=== PATIENT | female | born 1990 | race Caucasian/White ===

== ENCOUNTER 2020-12-06 10:57 | Emergency (ER) | payer OTHER ==
--- NOTE | 2020-12-06 12:09 | CR ---
Chest: Portable view of the chest was obtained. Comparison: Prior chest x-ray of 12/04/20. Focal density is seen within the right peripheral chest. This is an interval change from prior exam. Other findings within the lungs show improvement from prior study. Heart size and mediastinum are within normal limits. Bony structures show nothing acute. Impression: 1. Slight improvement within the lungs from prior chest x-ray with new area of increased density within the peripheral right lung. Findings are compatible with changing COVID pneumonia. Diagnostic code #3
--- NOTE | 2020-12-06 12:44 | EDM.PDOC ---
ED HPI GENERAL MEDICAL PROBLEM - General Chief Complaint: Respiratory Problem Stated Complaint: COVID+ COUGH Time Seen by Provider: 12/06/20 11:22 Source of Information: Reports: Patient, RN Notes Reviewed History Limitations: Reports: No Limitations - History of Present Illness INITIAL COMMENTS - FREE TEXT/NARRATIVE: Patient is a 30-year-old female presenting to the emergency department with complaints of Covid symptoms. Reports she has been ill for the last 8 days. Last evening she was checking her oxygen at home and states that it was 87 to 89% on room air. She complains of cough, shortness of breath, fevers, nausea, vomiting and diarrhea. She was seen in the clinic 2 days ago and started on Zofran for nausea. She reports chest x-ray was done that time and she was told she had "severe pneumonia ". She denies any chronic medical conditions. - Related Data Allergies Allergy/AdvReac Type Severity Reaction Status Date / Time No Known Allergies Allergy Verified 12/06/20 11:24 Home Meds: Home Meds Azithromycin 250 mg PO ASDIRECTED 5 Days #6 tablet 12/06/20 [Rx] dexAMETHasone [Decadron] 6 mg PO DAILY 5 Days #5 tablet 12/06/20 [Rx] Past Medical History Respiratory History: Reports: Asthma - Infectious Disease History Infectious Disease History: Reports: Novel Coronavirus Social & Family History - Tobacco Use Tobacco Use Status *Q: Never Tobacco User Second Hand Smoke Exposure: No - Recreational Drug Use Recreational Drug Use: No ED ROS GENERAL - Review of Systems Review Of Systems: See Below Constitutional: Reports: Fever, Chills, Fatigue, Decreased Appetite HEENT: Reports: No Symptoms Respiratory: Reports: Shortness of Breath, Cough. Denies: Wheezing Cardiovascular: Reports: No Symptoms Endocrine: Reports: No Symptoms GI/Abdominal: Reports: Diarrhea, Nausea, Vomiting. Denies: Abdominal Pain : Reports: No Symptoms Musculoskeletal: Reports: No Symptoms Skin: Reports: No Symptoms Neurological: Reports: No Symptoms Psychiatric: Reports: No Symptoms Hematologic/Lymphatic: Reports: No Symptoms Immunologic: Reports: No Symptoms ED EXAM, GENERAL - Physical Exam Exam: See Below Exam Limited By: No Limitations General Appearance: Alert, WD/WN, No Apparent Distress Respiratory/Chest: No Respiratory Distress, Lungs Clear, Normal Breath Sounds, No Accessory Muscle Use, Chest Non-Tender Cardiovascular: Normal Peripheral Pulses, Regular Rate, Rhythm, No Edema, No Gallop, No JVD, No Murmur, No Rub GI/Abdominal: Normal Bowel Sounds, Soft, Non-Tender, No Organomegaly, No Diste ntion, No Abnormal Bruit, No Mass Neurological: Alert, Oriented, CN II-XII Intact, Normal Cognition, Normal Gait, Normal Reflexes, No Motor/Sensory Deficits Psychiatric: Normal Affect, Normal Mood Skin Exam: Warm, Dry, Intact, Normal Color, No Rash Course - Vital Signs Last Recorded V/S: Last Vital Signs Temp 98.2 F 12/06/20 11:21 Pulse 86 12/06/20 11:21 Resp 18 12/06/20 11:21 BP 120/86 12/06/20 11:21 Pulse Ox 98 12/06/20 11:21 - Orders/Labs/Meds Labs: Laboratory Tests 12/06/20 12/06/20 12/06/20 Range/Units 12:10 12:10 12:10 WBC 6.63 (3.98-10.04) K/mm3 RBC 4.79 (3.98-5.22) M/mm3 Hgb 13.6 (11.2-15.7) gm/dl Hct 41.9 (34.1-44.9) % MCV 87.5 (79.4-94.8) fl MCH 28.4 (25.6-32.2) pg MCHC 32.5 (32.2-35.5) g/dl RDW Std Deviation 42.6 (36.4-46.3) fL Plt Count 238 (182-369) K/mm3 MPV 10.4 (9.4-12.3) fl Neut % (Auto) 78.2 H (34.0-71.1) % Lymph % (Auto) 14.8 L (19.3-51.7) % [place] % (Auto) 6.0 (4.7-12.5) % Eos % (Auto) 0.2 L (0.7-5.8) Baso % (Auto) 0.5 (0.1-1.2) % Neut # (Auto) 5.19 (1.56-6.13) K/mm3 Lymph # (Auto) 0.98 L (1.18-3.74) K/mm3 [place] # (Auto) 0.40 H (0.24-0.36) K/mm3 Eos # (Auto) 0.01 L (0.04-0.36) K/mm3 Baso # (Auto) 0.03 (0.01-0.08) K/mm3 Manual Slide Review Abnormal smear D-Dimer, Quantitative 0.49 (0.19-0.50) mg/L Sodium 139 (136-145) mEq/L Potassium 3.7 (3.5-5.1) mEq/L Chloride 102 (98-107) mEq/L Carbon Dioxide 27 (21-32) mEq/L Anion Gap 13.7 (5-15) BUN 6 L (7-18) mg/dL Creatinine 0.9 (0.55-1.02) mg/dL Est Cr Clr Drug Dosing 78.93 mL/min Estimated GFR (MDRD) > 60 (>60) mL/min BUN/Creatinine Ratio 6.7 L (14-18) Glucose 94 (70-99) mg/dL Calcium 8.5 (8.5-10.1) mg/dL Total Bilirubin 0.4 (0.2-1.0) mg/dL AST 53 H (15-37) U/L ALT 72 H (14-59) U/L Alkaline Phosphatase 84 (46-116) U/L C-Reactive Protein 21.8 H* (<1.0) mg/dL Total Protein 7.1 (6.4-8.2) g/dl Albumin 3.3 L (3.4-5.0) g/dl Globulin 3.8 gm/dL Albumin/Globulin Ratio 0.9 L (1-2) - Re-Assessments/Exams Free Text/Narrative Re-Assessment/Exam: 12/06/20 14:08 Hematology significant for C 53, ALT 72, CRP 21.8. Chest x-ray shows: 1. Slight improvement within the lungs from prior chest x-ray with no areas of increased density within the peripheral right lung. Findings are compatible with change in Covid pneumonia. Patient is maintaining oxygen saturation at 96 to 98% on room air. She reports that her uncle is a doctor in [place] and told her that she should request to be started on steroids and azithromycin. Discussed that there is differing evidence and any benefit of azithromycin, however she still would like to be placed. I will start her on dexamethasone and azithromycin. Discussed return precautions. Discharge instructions as documented. Departure - Departure Time of Disposition: 14:08 Disposition: Home, Self-Care 01 Condition: Good Clinical Impression: Pneumonia due to COVID-19 virus - Discharge Information *PRESCRIPTION DRUG MONITORING PROGRAM REVIEWED*: No *COPY OF PRESCRIPTION DRUG MONITORING REPORT IN PATIENT WES: No Prescriptions: Azithromycin 250 mg PO ASDIRECTED 5 Days #6 tablet dexAMETHasone [Decadron] 6 mg PO DAILY 5 Days #5 tablet Instructions: COVID-19 Referrals: PCP,Not In Area [Primary Care Provider] - Forms: ED Department Discharge Additional Instructions: Take the dexamethasone and azithromycin as prescribed. Continue to monitor your oxygen saturations. If you are maintaining a saturation of 88% or below and not coming up after resting for 15 minutes, you should return to the emergency department. Use Tylenol and ibuprofen as needed for fever discomfort. Ensure you are taking an adequate amount of fluid Return to ER as needed. Sepsis Event Note (ED) - Evaluation Sepsis Screening Result: No Definite Risk - Focused Exam Vital Signs: Vital Signs Temp Pulse Resp BP Pulse Ox 12/06/20 11:21 98.2 F 86 18 120/86 98
== END 2020-12-06 14:25 | disposition home or self-care (01) ==
LOC: JD.ED 10:57
DX: U07.1 COVID-19 (principal); J12.82 Pneumonia due to coronavirus disease 2019; J45.909 Unspecified asthma, uncomplicated; Z79.899 Other long term (current) drug therapy
CPT/HCPCS: 36415; 71045; 71045-26; 80053; 85025; 85379; 86140; 99285-25